=== PATIENT | female | born 1980 | race Caucasian/White ===

== ENCOUNTER → 2024-05-15 10:59 | Outpatient (REF) | payer OTHER, SELFPAY | LOC: HWWDC 10:59 | PROVIDERS: ATTENDING PHYSICIAN Physician Assistant Medical | DX: Z12.31 Encounter for screening mammogram for malignant neoplasm of breast (principal) | CPT/HCPCS: 77063; 77067 ==

== ENCOUNTER → 2025-08-06 14:35 | Outpatient (REF) | payer OTHER, SELFPAY | LOC: WDC 14:35 | PROVIDERS: ATTENDING PHYSICIAN Physician Assistant Medical | DX: Z12.31 Encounter for screening mammogram for malignant neoplasm of breast (principal) | CPT/HCPCS: 77063; 77067 ==